=== PATIENT | female | born 1950 | race Caucasian/White ===

== ENCOUNTER 2016-05-31 16:33 | Emergency (ER) | payer MEDICARE, OTHER ==
[2016-05-31] MEDS ORDERED: ASPIRIN 81 MG TAB.CHEW PO ONE (16:45)
[2016-05-31] MEDS ORDERED: ASPIRIN 81 MG TAB.CHEW ONE (16:49)
[2016-05-31] MEDS: NITROGLYCERIN 0.4 MG/TAB BTL SL PRN ×2 (16:54→17:10)
[2016-05-31 17:00] LABS: Hematocrit 37.4 % (37.0-47.0); Hemoglobin 12.6 gm/dL (12.5-16.0); Mean Cell Volume 88.2 fl (78-100); Mean Corpuscular Hemoglobin 29.7 pg (27-31); Mean Corpuscular Hgb Conc 33.7 g/dl (32-36); Mean Platelet Volume 10.1 fl (6.0-9.5); Neutrophil # 6.7 K/mm3 (1.3-6.0); Neutrophil % 56.2 % (42-75.0); Platelet Count 265 K/mm3 (150-450); Red Blood Count 4.24 M/mm3 (4.2-5.4); Red Cell Distribution Width 13.2 % (11.5-14.0); White Blood Count 11.8 K/mm3 (4.0-10.5)
[2016-05-31 17:08] LABS: Prothrombin Time (Patient) 10.5 Seconds (9.4-11.4)
[2016-05-31 17:10] LABS: INR 1.01 INR (0.90-1.10); Partial Thrombolplastin Time 33.9 Seconds (24-32)
[2016-05-31 17:14] LABS: ALT 30 U/L (19-67); AST 21 U/L (0-48); Albumin * 4.1 gm/dl (3.4-5.0); Alkaline Phosphatase * 52 U/L (50-170); Anion Gap 14.3 mmol/L (6.8-13.8); BUN/Creatinine Ratio 22.1 (9.0-21.6); Bilirubin, Total 0.4 mg/dL (0.0-1.1); Blood Urea Nitrogen 17 mg/dL (3-23); Ca. Corrected For Albumin 8.9 mg/dL (8.4-10.2); Calcium * 9.3 mg/dL (7.9-10.9); Carbon Dioxide 27.3 mmol/L (24-32.6); Chloride 103 mmol/L (97-106); Glucose * 99 mg/dL (70-110); Potassium 3.6 mmol/L (3.4-4.6); Sodium 141 mmol/L (132-142); Total Protein 7.9 gm/dL (6.2-8.2); Troponin I Less than 0.017 ng/ml (0.00-0.10)
--- NOTE | 2016-05-31 18:12 | ERNOTE ---
Chest Pain/Cardiac HPI Chief Complaint: Chest Pain Time Seen by Provider: 05/31/16 17:48 Source: patient, family Exam Limitations: no limitations Immunizations: IMMUNIZATION HX Immunizations Up to Date Yes History of Influenza Vaccine Yes Hx Pneumococcal Vaccination Yes Allergies/Adverse Reactions: Allergies Penicillins Allergy (Verified 05/31/16 16:45) Sulfa (Sulfonamide Antibiotics) Allergy (Verified 05/31/16 16:45) bee stings Allergy (Uncoded 05/31/16 16:45) Home Medications: HOME MEDICATIONS Alendronate Sodium [Fosamax] 70 mg PO Q7D 04/11/13 [Last Taken Unknown] Esomeprazole Magnesium [Nexium] 20 mg PO DAILY 04/11/13 [Last Taken Unknown] Ascorbic Acid [Vitamin C] 1,000 mg PO DAILY 05/31/16 [Last Taken Unknown] Calcium Carbonate [Calcium] 500 mg PO DAILY 05/31/16 [Last Taken Unknown] Loratadine [Claritin] 10 mg PO DAILY 05/31/16 [Last Taken Unknown] [place]-3 Fatty Acids [Fish Oil] 500 mg PO DAILY 05/31/16 [Last Taken Unknown] Pain Score #1 Pain Score: 2 Narrative: Patient was sitting in the car when she started to have right sided chest pressure that radiated to her right arm and her posterior neck, no other associated symptoms, no aggravating or alleviating factors. She was treated for right sided breast cancer 12 years ago with lumpectomy, chemo and radiation, no problems since. She saw her chiropractor 2-3 weeks ago for right arm and neck pain, that resolved after treatment, states that this feels different Date (Duration): 05/31/16 Time (Timing): 14:30 Severity/Quality: mild, pressure Location: other Chest Pain Radiation: arms, neck Activities at Onset: none Modifying Factors - Improves: Present: nothing Modifying Factors - Worsens: Absent: breathing, exercise, position Nitro Today/Relief: no nitro taken today Aspirin Treatment Today: no aspirin today Associated Symptoms: Absent: headache, dizziness, syncope, cough, shortness of breath, diaphoresis, fever/chills, palpitations, heartburn, nausea, vomiting, abdominal pain, weakness Prior Chest Pain/Cardiac Workup: Reports: no prior cardiac workup. Denies: prior chest pain Review of Systems - Review of Systems Constitutional: Absent: recent illness, fever ENT: Absent: nasal drainage, sore throat Respiratory: Absent: shortness of breath, cough Cardiology: Present: See HPI. Absent: palpitations Gastrointestinal/Abdominal: Absent: nausea, vomiting, diarrhea, abdominal pain Genitourinary: Present: no symptoms reported Musculoskeletal: Absent: neck pain Skin: Present: rash - posterior neck Neurological: Present: tingling - right arm. Absent: weakness, numbness - Patient's Past Medical History Patient History - Medical: GERD Patient History - Cardiac/Respiratory: No pertinent hx Patient History - Cancer: Breast Patient History - Surgical Procedures: Appendectomy, Cholecystectomy, Hysterectomy - Social History Living Situations: home Smoking Status: Never smoker Alcohol Use: none Drug Use: none - Immunizations Immunizations Up to Date: Yes Physical Exam - Physical Exam General Appearance: Present: wd/wn, alert, no apparent distress Eye Exam: Normal inspection: bilateral, PERRL: bilateral Ears, Nose, Throat: Present: normal pharynx Neck: Present: normal inspection, tender lateral - right lateral, other - vesicular rash across lower c-spine on both sideds. Absent: tender posterior midline Respiratory: Present: no respiratory distress, normal breath sounds, no accessory muscle use, chest nontender, lungs clear, other - breast non tender, no rash Cardiovascular/Chest: Present: regular rate, rhythm, no murmur Gastrointestinal/Abdominal: Present: normal bowel sounds, nontender, nondistended, soft, no organomegaly Back Exam: Present: normal inspection Extremity Exam: Present: normal inspection, non-tender, no edema Neurological Exam: Present: alert, oriented, normal mood/affect, no motor/ sensory deficits Skin Exam: Present: normal color, warm/dry ED Progress - Results and Orders Patient's Lab Results:: I have reviewed the patient's lab results. - Vital Signs Patient's Vital Signs:: I have reviewed the patient's vital signs. Vital Signs: Vital Signs 05/31/16 05/31/16 05/31/16 16:40 16:56 17:10 Pulse Rate 84 78 76 Respiratory 14 14 14 Rate Blood Pressure 165/81 161/79 128/79 O2 Sat by Pulse 97 97 97 Oximetry - EKG EKG: NSR, nonspecific ST T wave changes, unchanged from - 09/25/2007 EKG read: Interp. by wy - X-Ray X-Ray #1 X-Ray: chest - no acute Interpretation: Interp. by me - Progress/Reassessment Chief Complaint: Chest Pain Progress Note-Subjective: 05/31/16 18:37 patient has unchanged minimal symptoms discussed results and that test cannot ruled out CAD, offered admission vs rapid ruled out in ER (repeat trop in 25min) patient choose later option 05/31/16 19:53 repeat troponin nl,discussed with patient and family Departure - Departure Clinical Impression: Chest pain Qualifiers: Chest pain type: unspecified Qualified Code(s): R07.9 - Chest pain, unspecified Disposition: Home self-care Condition: Good Instructions: Chest Pain Observation Additional Instructions: follow up with your doctor
[2016-06-01 00:21] VITALS: BP 120/64
== END 2016-05-31 19:55 | disposition home or self-care (01) ==
LOC: ER 16:33
DX: R07.9 Chest pain, unspecified (principal); Z90.710 Acquired absence of both cervix and uterus; Z90.49 Acquired absence of other specified parts of digestive tract; Z85.3 Personal history of malignant neoplasm of breast; K21.9 Gastro-esophageal reflux disease without esophagitis

== ENCOUNTER 2017-04-20 21:28 | Emergency (ER) | payer MEDICARE, OTHER ==
--- NOTE | 2017-04-20 21:47 | ERNOTE ---
Medical Problem HPI - Narrative Date of Service: 04/20/17 - General Chief Complaint: Nausea/Vomiting Time Seen by Provider: 04/20/17 21:35 Source: patient, family - Immun/Allergies/Home Medications Immunizations: IMMUNIZATION HX Immunizations Up to Date Yes History of Influenza Vaccine Yes Hx Pneumococcal Vaccination Yes Allergies/Adverse Reactions: Allergies Penicillins Allergy (Verified 04/20/17 21:36) Sulfa (Sulfonamide Antibiotics) Allergy (Verified 04/20/17 21:36) bee stings Allergy (Uncoded 04/20/17 21:36) Home Medications: HOME MEDICATIONS Alendronate Sodium [Fosamax] 70 mg PO Q7D 04/11/13 [Last Taken Unknown] Calcium Carbonate [Calcium] 600 mg PO DAILY 05/31/16 [Last Taken Unknown] [place]-3 Fatty Acids [Fish Oil] 1,000 mg PO DAILY 05/31/16 [Last Taken Unknown] Cefdinir 300 mg PO BID 04/20/17 [Last Taken Unknown] Esomeprazole Magnesium [Nexium] 40 mg PO DAILY 04/20/17 [Last Taken Unknown] Fexofenadine HCl 180 mg PO DAILY 04/20/17 [Last Taken Unknown] Multivitamin [Multivitamins] 1 each PO DAILY 04/20/17 [Last Taken Unknown] Levofloxacin [Levaquin] 500 mg PO DAILY #7 tablet 04/21/17 [Last Taken Unknown] Ondansetron HCl [Zofran] 4 mg PO Q6H PRN #12 tablet 04/21/17 [Last Taken Unknown ] - History of Present History Narrative: She comes in not feeling well for a couple of days. She says she's had some mild epigastric discomfort along with belching and nausea and dry heaving. She is also complaining of some left flank pain. The patient says that she was started on antibiotics on Monday for a sinus infection. She is allergic to penicillin and was started on cefdinir. She had no problem first day of taking antibiotics. No throat swelling or itching. No rash. The patient denies having any chest pain or shortness of breath. She denies any swelling in her legs. She has never had a kidney stone. She denies dysuria. She denies blood in her stool. She has never had diverticular disease Review of Systems - Review of Systems Constitutional: Present: recent illness, fatigue, malaise EYE: Present: no symptoms reported ENT: Present: no symptoms reported Respiratory: Present: no symptoms reported Cardiology: Present: no symptoms reported Gastrointestinal/Abdominal: Present: See HPI, nausea, vomiting, abdominal pain Genitourinary: Present: other - flank pain on the left flank pain on the left Musculoskeletal: Present: no symptoms reported Skin: Present: no symptoms reported Neurological: Present: no symptoms reported Endocrine: Present: no symptoms reported - Patient's Past Medical History Patient History - Medical: GERD Patient History - Cardiac/Respiratory: No pertinent hx Patient History - Cancer: Breast, Chemotherapy history, Ovarian Patient History - Surgical Procedures: Appendectomy, Cholecystectomy, Hysterectomy, Urology Patient History - Other: None - Social History Living Situations: home Psych History: No pertinent hx - Immunizations Immunizations Up to Date: Yes Hx Pneumococcal Vaccination: Yes History of Influenza Vaccine: Yes Physical Exam - Physical Exam General Appearance: Present: wd/wn, alert, no apparent distress Head Exam: Present: normal inspection, no evidence of injury Eye Exam: Normal inspection: bilateral, PERRL: bilateral, EOMI: bilateral Ears, Nose, Throat: Present: normal ENT inspection, normal pharynx Neck: Present: normal inspection, nontender Respiratory: Present: no respiratory distress, normal breath sounds, no accessory muscle use, lungs clear Cardiovascular/Chest: Present: regular rate, rhythm, no murmur, normal peripheral pulses Gastrointestinal/Abdominal: Present: normal bowel sounds, other - patient has some mild discomfort to palpation the left abdomen lateral to the umbilicus. No rebound. No guarding. No pain in other quadrants. Back Exam: Present: normal inspection, normal range of motion, no CVA tenderness Extremity Exam: Present: normal inspection, non-tender, no edema Neurological Exam: Present: alert, oriented, normal mood/affect, no motor/ sensory deficits Skin Exam: Present: normal color, warm/dry Lymphatic Exam: Present: no adenopathy ED Progress - Results and Orders Patient's Lab Results:: I have reviewed the patient's lab results. - Vital Signs Patient's Vital Signs:: I have reviewed the patient's vital signs. Vital Signs: Vital Signs 04/20/17 21:31 Temperature 37.8 C H Pulse Rate 106 H Respiratory 15 Rate Blood Pressure 147/72 O2 Sat by Pulse 94 Oximetry - CT/Ultrasound CT/Ultrasound Narrative: CT does not demonstrate any colitis diverticulitis uropathy or bowel obstruction there is significant stool loading which may manifest as constipation and there is a right lower lobe airspace disease felt to be infiltrate - Progress/Reassessment Chief Complaint: Nausea/Vomiting Departure Clinical Impression: Pneumonia - Departure Disposition: Home self-care Condition: Good Instructions: Community-Acquired Pneumonia, Adult, [id number] Additional Instructions: As we discussed the CAT scan does not show any signs of a problem with urine test in this. The CAT scan did demonstrate that you have a little bit of pneumonia in the right lower part of your lung. This may actually be the cause of your fever and the feelings of not feeling well. U do have some constipation. 1 of 2 things will happen in the next few days. He will likely get better and have no further symptoms. Or he may develop increasing abdominal pain with new symptoms which point us in a specific direction. Take the prescribed Levaquin to help with the infection. Stop taking the previously prescribed antibiotics. Dicta prescribed Zofran to help with nausea. Ibuprofen or Tylenol to help with the fever. Call your family doctor and set up a follow-up appointment. Return to the ER for new concerning symptoms Referrals: Lloyd Lemos MD [Primary Care Provider] - Prescriptions: Levofloxacin [Levaquin] 500 mg PO DAILY #7 tablet Ondansetron HCl [Zofran] 4 mg PO Q6H PRN #12 tablet PRN Reason: Nausea
[2017-04-20 21:51] LABS: Hematocrit 36.3 % (37.0-47.0); Hemoglobin 12.4 gm/dL (12.5-16.0); Mean Cell Volume 86.4 fl (78-100); Mean Corpuscular Hemoglobin 29.5 pg (27-31); Mean Corpuscular Hgb Conc 34.2 g/dl (32-36); Mean Platelet Volume 10.3 fl (6.0-9.5); Neutrophil # 7.6 K/mm3 (1.3-6.0); Neutrophil % 80.1 % (42-75.0); Platelet Count 225 K/mm3 (150-450); Red Cell Distribution Width 12.8 % (11.5-14.0); White Blood Count 9.4 K/mm3 (4.0-10.5)
[2017-04-20 22:16] LABS: ALT 20 U/L (19-67); AST 20 U/L (0-48); Albumin * 3.8 gm/dl (3.4-5.0); Alkaline Phosphatase * 54 U/L (50-170); Anion Gap 15.2 mmol/L (6.8-13.8); BUN/Creatinine Ratio 18.3 (9.0-21.6); Bilirubin, Total 0.4 mg/dL (0.0-1.1); Blood Urea Nitrogen 13 mg/dL (3-23); Ca. Corrected For Albumin 8.6 mg/dL (8.4-10.2); Calcium * 8.8 mg/dL (7.9-10.9); Carbon Dioxide 25.3 mmol/L (24-32.6); Chloride 99 mmol/L (97-106); Glucose * 146 mg/dL (70-110); Lipase 181 U/L (73-393); Potassium 3.5 mmol/L (3.4-4.6); Sodium 136 mmol/L (132-142); Total Protein 8.1 gm/dL (6.2-8.2); Troponin I Less than 0.017 ng/ml (0.00-0.10)
[2017-04-20] MEDS ORDERED: ONDANSETRON HCL/PF 2 MG/ML VIAL IV ONE (23:20)
[2017-04-20] MEDS ORDERED: DIATRIZOATE MEGLUMINE, SODIUM 30 ML BTL PO ONE (23:47)
[2017-04-20] MEDS ORDERED: DIATRIZOATE MEGLUMINE, SODIUM 30 ML BTL ONE (23:48)
[2017-04-20] MEDS ORDERED: ONDANSETRON HCL/PF 2 MG/ML VIAL ONE (23:57)
[2017-04-21 00:18] LABS: Urine Bilirubin Negative (NEGATIVE); Urine Blood 25 /ul (NEGATIVE); Urine Ketone 15 mg/dL (NEGATIVE); Urine Nitrite Negative (NEGATIVE); Urine Protein 15 mg/dL (NEGATIVE); Urine Specific Gravity 1.015 SP.GR. (1.005-1.010); Urine Urobilinogen Normal (NORMAL)
[2017-04-21 00:19] LABS: Urine Amorphous Sediment Few - 1+ (NONE-FEW); Urine Appearance Clear; Urine Bacteria None Seen; Urine Color Yellow; Urine Mucus Few - 1+; Urine RBC 0-5 /hpf (0-5); Urine WBC 0-5 /hpf (0-5)
[2017-04-21] MEDS ORDERED: LEVOFLOXACIN 500 MG TABLET PO ONE (02:45)
[2017-04-21] MEDS ORDERED: ONDANSETRON HCL/PF 2 MG/ML VIAL IV ONE (02:45)
[2017-04-21] MEDS ORDERED: LEVOFLOXACIN 500 MG TABLET ONE (02:58)
[2017-04-21] MEDS ORDERED: ONDANSETRON HCL/PF 2 MG/ML VIAL ONE (02:58)
[2017-04-21 05:53] VITALS: BP 118/76
== END 2017-04-21 03:10 | disposition home or self-care (01) ==
LOC: ER 21:28
DX: J18.9 Pneumonia, unspecified organism (principal); Z85.3 Personal history of malignant neoplasm of breast; Z85.43 Personal history of malignant neoplasm of ovary; Z92.21 Personal history of antineoplastic chemotherapy; K21.9 Gastro-esophageal reflux disease without esophagitis
CPT/HCPCS: 36415; 74176; 80053; 81001; 83690; 84484; 85025; 93005; 96374; 99284; J2405